=== PATIENT | male | born 1975 | race Caucasian/White ===

== ENCOUNTER 2022-09-23 21:20 | Emergency (ER) | payer MEDICAID ==
[~2022-09-23] VITALS: Ht 175.3 cm; Wt 90.7 kg
[2022-09-23 22:05] LABS: BASOPHILS # (AUTO) 0.1 K/UL (0.0-0.2); BASOPHILS % (AUTO) 0.9 % (0.0-2.0); EOSINOPHILS # (AUTO) 0.1 K/uL (0.0-0.7); EOSINOPHILS % (AUTO) 0.9 % (0.0-7.0); HEMATOCRIT 46.8 % (36.7-47.1); HEMOGLOBIN 15.5 g/dL (12.5-16.3); LYMPHOCYTES # (AUTO) 2.3 K/uL (0.8-4.8); LYMPHOCYTES % (AUTO) 17.9 % (20.5-51.5); MEAN CORPUSCULAR HEMOGLOBIN 30.7 uug (23.8-33.4); MEAN CORPUSCULAR HGB CONC 33 g/dL (32.5-36.3); MEAN CORPUSCULAR VOLUME 92.5 fL (73.0-96.2); MONOCYTES # (AUTO) 1.2 K/uL (0.1-1.30); MONOCYTES % (AUTO) 9.4 % (0.0-11.0); NEUTROPHILS # (AUTO) 9.1 K/uL (1.8-8.9); NEUTROPHILS % (AUTO) 70.9 % (38.5-71.5); PLATELET COUNT (AUTO) 323 K/uL (152-348); RED BLOOD CELL COUNT(AUTO) 5.06 MIL/uL (4.06-5.63); RED CELL DISTRIBUTION WIDTH 13.5 % (12.1-16.2); WHITE BLOOD COUNT (AUTO) 12.8 K/uL (3.6-10.2)
[2022-09-23 22:17] LABS: DIFFERENTIAL COMMENT 1
[2022-09-23 22:18] LABS: CALCIUM 9.3 mg/dL (8.5-10.1); CREATININE 1.1 mg/dL (0.6-1.3); POTASSIUM 4.1 mmol/L (3.5-5.1)
[2022-09-23 22:24] LABS: ALBUMIN 4.2 g/dL (3.4-5.0); BILIRUBIN,DIRECT 0.1 mg/dL (0.0-0.2); BILIRUBIN,TOTAL 0.3 mg/dL (0.2-1.0); TOTAL PROTEIN, SERUM 7.6 g/dL (6.4-8.2)
[2022-09-23] MEDS ORDERED: SWABABLE VALVE TRANSFER SET EA MC ONE (22:42)
[2022-09-23] MEDS ORDERED: IV NORMAL SALINE 250 ML IV ONE (22:42)
[2022-09-23] MEDS ORDERED: IOHEXOL 300MG/ML 100 ML INFUS..BTL ONE (22:42)
[2022-09-23 23:34] LABS: *BILIRUBIN,URIN NEGATIVE (NEGATIVE); *BLOOD, URINE 2+ (NEGATIVE); *CLARITY,URINE CLEAR (CLEAR); *COLOR,URINE YELLOW (YELLOW); *KETONES,URINE NEGATIVE (NEGATIVE); *PROTEIN,URINE NEGATIVE (NEGATIVE); *UROBILINOGEN,URINE 0.2 E.U./dl (NORMAL); LEUKOCYTE ESTERASE ,URINE TRACE (NEGATIVE); NITRITE, URINE NEGATIVE (NEGATIVE); PH,URINE 5.5 (5.0-8.0); UGLUCOSE NEGATIVE (NEGATIVE)
[2022-09-23 23:48] LABS: BACTERIA,URINE NONE SEEN /HPF (NONE SEEN); SQUAMOUS EPITHELIAL CELL,UR NONE SEEN /HPF (NONE SEEN)
[2022-09-24] MEDS ORDERED: TAMS-3 PO (00:09)
[2022-09-24] MEDS ORDERED: IBUP-1955 PO (00:11)
[2022-09-24] MEDS: TAMSULOSIN HCL 0.4 MG CAP.SR.24H PO ONE (00:12)
[2022-09-24] MEDS ORDERED: TAMSULOSIN HCL 0.4 MG CAP.SR.24H ONE (00:14)
[2022-09-24] MEDS ORDERED: KETOROLAC TROMETHAMINE 15 MG INJ ONE (00:14)
[2022-09-24] MEDS: KETOROLAC TROMETHAMINE 15 MG INJ IVP ONE (00:22)
[2022-09-24 00:38] VITALS: BP 140/82; TEMP 98; O2SAT 99
== END 2022-09-24 00:39 | disposition home or self-care (01) ==
LOC: ER 21:20
DX: N20.0 Calculus of kidney (principal); F17.210 Nicotine dependence, cigarettes, uncomplicated; Z79.1 Long term (current) use of non-steroidal anti-inflammatories (NSAID); Z79.899 Other long term (current) drug therapy
CPT/HCPCS: 99285; 74177; 80076; 80048; 81001; 83690; 85025; 36415; 96374; Q9967; J1885; A4663

== ENCOUNTER 2024-12-08 02:14 | Emergency (ER) | payer MEDICAID ==
[~2024-12-08] VITALS: Ht 172.7 cm; Wt 103.4 kg
[~2024-12-08 02:14] MED LIST: IBUP-1955 PO; TAMS-3 PO
[2024-12-08] MEDS ORDERED: METOCLOPRAMIDE HCL 10 MG/2 ML VIAL ONE (02:46)
[2024-12-08] MEDS ORDERED: KETOROLAC TROMETHAMINE 15 MG INJ ONE (02:46)
[2024-12-08] MEDS: METOCLOPRAMIDE HCL 10 MG/2 ML VIAL IV ONE (02:47)
[2024-12-08] MEDS: KETOROLAC TROMETHAMINE 15 MG INJ IVP ONE (02:48)
[2024-12-08 02:53] LABS: PLATELET COUNT (AUTO) 447 K/uL (152-348); RED BLOOD CELL COUNT(AUTO) 5.32 MIL/uL (4.06-5.63); RED CELL DISTRIBUTION WIDTH 13.5 % (12.1-16.2); WHITE BLOOD COUNT (AUTO) 22.3 K/uL (3.6-10.2)
[2024-12-08 02:56] LABS: CREATININE 1.0 mg/dL (0.6-1.3); SODIUM SERUM 141 mmol/L (136-145); UREA NITROGEN, BLOOD 14 mg/dL (7-18)
[2024-12-08 03:01] LABS: ASPARTATE AMINOTRANSFERASE 15 U/L (15-37); TOTAL PROTEIN, SERUM 8.2 g/dL (6.4-8.2)
[2024-12-08] MEDS ORDERED: ONDANSETRON 4 MG/2 ML VIAL ONE ×2 (05:38→07:40)
[2024-12-08] MEDS ORDERED: HYDROMORPHONE 1 MG/1 ML DISP.SYRIN ONE ×3 (05:39→08:23)
[2024-12-08] MEDS: HYDROMORPHONE 1 MG/1 ML DISP.SYRIN IV ONE ×3 (05:44→08:27)
[2024-12-08] MEDS: ONDANSETRON 4 MG/2 ML VIAL IV ONE ×2 (05:44→07:52)
[2024-12-08] MEDS ORDERED: PIPERACILLIN/TAZO 4.5 GM VIAL IV ONE (07:43)
[2024-12-08] MEDS ORDERED: IV LACTATED RINGERS SOLUTION 1,000 ML IV ONE (07:45)
[2024-12-08] MEDS: IV NS 1000 ML 1,000 ML IV ONE (07:52)
[2024-12-08] MEDS: PIPERACILLIN SODIUM/TAZOBACTAM 4.5 G in IV DEXTROSE 5% 50 ML IV ONE (08:11)
[2024-12-08 09:00] VITALS: BP 137/94; O2SAT 99
== END 2024-12-08 10:15 | disposition short-term general hospital (02) ==
LOC: ER 02:19
DX: K56.609 Unspecified intestinal obstruction, unspecified as to partial versus complete obstruction (principal); F17.200 Nicotine dependence, unspecified, uncomplicated; Z79.1 Long term (current) use of non-steroidal anti-inflammatories (NSAID)
CPT/HCPCS: 99285; 74176; 96365; 96375; 71045 ×2; 96361; 80076; 80048; 83690; 85025; 85730; 84484; 36415; 43752; 93005; 96376; J1885; J2765; J2405 ×2; J2543; J1171 ×3; J7040; A4606; A4663